=== PATIENT | female | born 1970 | race Caucasian/White ===

== ENCOUNTER 2020-12-15 10:00 | Outpatient (RCR) | payer OTHER, SELFPAY ==
--- NOTE | 2020-09-29 14:52 | HP.PTEVAL ---
Patient's Visit Information FARRUKH FARAH is a 50 year old F referred to Physical Therapy by LINDA SAUNDERS with a diagnosis of Complex Regional Pain Syndrome L LE. Date of Evaluation: 09/29/20 Physical Therapist: Julian Pham DPT - Visit Plan Frequency: 2x /Week Duration: 4 Weeks Plan: Plan for the pt. is to incorporate desensitization exercises to the left foot so the pt. can tolerate bearing weight through the foot. The pt. will start aquatic therapy and work on increasing her ROM and strength. HEP consisted of hip abduction exercises in sitting, ankle ABCs, and ankle pumps. If the pt. cannot tolerate foot strengthening or mobility exercises, start the patient with strengthening the proximal LE musculature in the pool. - Subjective The pt. is a 50 yo female who presents to the clinic with left ankle and foot pain. The pt. reports that she has been having this pain ever since her ankle surgery back in September 2019. She is dealing with CRPS and had a spinal stimulator in place in May and had multiple different complications with this, which resulted in getting it removed 6 days after it was placed. The spinal stimulator that was removed caused complications that the pt. is still dealing with, such as numbness and tingling into the left glute and groin area. The pt. is currently on pain medications such as Percocet for her pain, as well as Topamax. Pt. is scheduled to meet with her Dr., Dr. Saunders, on October 15 to discuss ketamine infusions in the ankle if the pain does not subside from PT. Pt. reports that participating in any sort of activity aggravates the pain in her ankle and she cannot sleep throughout the night. The pt. was an active individual prior to the ankle surgery and ran 3-4 miles 5 days a week and would like to get back to working and doing her ADL's without pain and discomfort. She is currently using a cane when she goes out into the community and at home, but did not bring it to therapy today. Her pain is ranked as an 8/10 today and reports numbness and tingling into the hip region and the medial aspect of the foot, as well as her foot feeling cold. - Pain L Ankle/Foot Pain Intensity (Out of 10): 8 Pain Intensity Range: 10 - Objective Posture: minimal rounded shoulders, forward head in both standing and sitting. Gait: decreased stance time on the L, decreased knee flexion during weight acceptance, decreased push off on L, decreased hip flexion throughout gait cycle on L, both lower extremities had decreased step length. Sensation: Intact on R, decreased sensation along L glute/groin region, decreased on L lateral aspect on foot, decreased on dorsal aspect of digits 1-5 of foot, increased sensation on the L medial aspect of foot, increased on L posterior rearfoot. ROM: L eversion 1 deg, R 12 deg, L inversion 5 deg, R 35 deg, L PF 2 deg, R 40 deg, L DF caused too much pain and was not tested, R 15 deg. MMT: hip extension R 4/5, L 3/5 with pain, hip abduction R 4/5, L 3/5 with pain, hip flexion R 5/5, L 3/5 with pain, Knee flexion R 5/5, L was not tested due to pain, Knee extension R 5/5, L was not tested due to pain, Dorsiflexion/inversion R 5/5, L was not tested due to pain, Eversion r 5/5, L was not tested due to pain. The pt. exhibits multiple limitations in gait, strength, sensation, and ROM, in which all need to be addressed by PT. The pt. is unable to tolerate weight in the left foot and shows an impaired gait pattern. The pt. needs PT to increase the patient's tolerance to movement, as well as strengthening the hip, knee, ankle, and foot musculature so she can return to her activities. - Goals Goal 1:: LTG: Pt. will be compliant and independent with her HEP. Goal Time Frame: 2-4 Weeks Goal 2:: LTG: Pt. will be able to score a 5/5 bilaterally in hip abduction strength, so she can ascend and descend the stairs in her home. Goal Time Frame: 4-6 Weeks Goal 3:: LTG: Pt. will be able to don and doff her shoes and socks on the L foot with pain less than a 3/10. Goal Time Frame: 4-6 Weeks Goal 4:: LTG: Pt. will be able to improve her DF ROM by 10 degrees so she can improve her gait. Goal Time Frame: 4-6 Weeks Goal 5:: LTG: Pt. to ambulate with improved normal gait pattern including normal rocker moment with 0-2/10 pain in LLE. Goal Time Frame: 4-6 Weeks - Rehabilitation Potential Physical Therapy Diagnosis: Pt. is a 50 yo pt. presenting to the clinic with signs and symptoms consistent to CRPS in the left lower extremity stemming from complications s/p ankle surgery in September 2019. The pt. shows decreased sensation, decreased ROM, and decreased strength within the left foot and ankle. The pt. is needing PT to address her impairments so she can resume working and living her life without pain. Rehabilitation Potential: Good - Anticipated Interventions Patient/Client Instruction: Educate patient on: Condition, Plan of Care, Risk Factors For the Purpose of:: To improve self management, To prevent re-injury, To improve ability to perform tasks related to life management, To improve tolerance to ADL's Therapeutic Exercise to Include: Strength training, Endurance training, Coordination, In an aquatic setting, Passive ROM, Active ROM For the Purpose of:: To decrease pain, To increase ROM, To improve muscle performance and motor function, To improve ability to perform ADL's, To increase flexibility/ROM Thank you for the opportunity to evaluate your patient. For Medicare and Medicare HMO plans, please review the plan of care and approve it. It will need to be FAXED BACK to us at [phone] for Medicare purposes. For Medicare only, by signing this I certify the plan of care. Please let me know if there are questions or concerns regarding this plan of care. Physician Signature: Date:
--- NOTE | 2020-10-27 15:41 | HP.PTREVAL_ITS ---
LINDA SAUNDERS, It has been my pleasure to treat FARRUKH FARAH over the last 9 visits for Complex Regional Pain Syndrome L LE. Please see the progress note below for an update on the physical therapy plan of care! Subjective: Today the pt. states that she is having pain in her left foot/ankle at about a 9/10. She states that she feels that she has not seen much change in her progress or her pain levels, but does want to continue seeing physical therapy and working in the pool. She has been having low back pain and left hip pain, which started last and has progressively gotten worse. Objective/Function: Today is the last scheduled visit for the pt. After having a conversation about physical therapy and the progress that the pt. has been making, the pt. would like to schedule more visits 2x a week and will speak to her doctor about getting a new C9. The pt. was able to stand for 30sec using her cane in her R hand with eyes open, as well as eyes closed. The pt. stated that she has been feeling off balance because of the numbness and loss of sensation she is having in her left foot. Her ankle plantarflexion and dorsiflexion ROM has progressed minimally, about 5deg each way, but has shown improvement from doing aquatic therapy and doing her exercises at home. Her gait pattern has also improved slightly since her first visit. She is putting more weight through her left foot while ambulating and has increased her jean paul slightly. The pts. low back and hip pain could be stemming from her abnormal gait pattern and can be addressed by PT in future visits. Plan Plan: The pt. will continue to see physical therapy 2x a week to increase her tolerance to weightbearing, mobility of the ankle joint, and increase her strength. The pt. has been having some low back pain and left hip pain, which should be addressed when performing exercises. She prefers aquatic therapy. As ubaldo for a new C9 x2 a week for 4 weeks to continue with progression for her pain and tolerance to functional mobility. Goals Goal 1:: LTG: Pt. will be compliant and independent with her HEP. Goal Time Frame: 2-4 Weeks Goal Progress: Progressing Goal 2:: LTG: Pt. will be able to score a 5/5 bilaterally in hip abduction strength, so she can ascend and descend the stairs in her home. Goal Time Frame: 4-6 Weeks Goal Progress: Progressing Goal 3:: LTG: Pt. will be able to don and doff her shoes and socks on the L foot with pain less than a 3/10. Goal Time Frame: 4-6 Weeks Goal Progress: Progressing Goal 4:: LTG: Pt. will be able to improve her DF ROM by 10 degrees so she can improve her gait. Goal Time Frame: 4-6 Weeks Goal Progress: Progressing Goal 5:: LTG: Pt. to ambulate with improved normal gait pattern including normal rocker moment with 0-2/10 pain in LLE. Goal Time Frame: 4-6 Weeks Goal Progress: Progressing Anticipated Interventions Patient/Client Instruction: Educate patient on: Condition, Plan of Care, Risk Factors For the Purpose of:: To improve self management, To prevent re-injury, To improve ability to perform tasks related to life management, To improve tolerance to ADL's Therapeutic Exercise to Include: Strength training, Endurance training, Coordination, In an aquatic setting, Passive ROM, Active ROM For the Purpose of:: To decrease pain, To increase ROM, To improve muscle performance and motor function, To improve ability to perform ADL's, To increase flexibility/ROM Please do not hesitate to contact me at [phone] by phone or if you have questions or concerns regarding this new plan of care! Sincerely, Julian Pham DPT
--- NOTE | 2020-12-15 13:01 | HP.PTDCSUM_ITS ---
It has been my pleasure to treat FARRUKH FARAH referred by LINDA SAUNDERS, with the diagnosis of Complex Regional Pain Syndrome L LE for a total of 16 visit(s). Discharge Date: 12/15/20 Please see the following information for a summary of their discharge status. Subjective: Pt. reports having increased symptoms. She arrives today using a cane. Pt. reports having pain that radiates up to mid calf and down to arch of foot. Pt. reports overall the symptoms are worsening. She reports possible ketamine in Dec and possible new trial of nitrous oxide treatments. She is walking in home, but has not be able to complete a more formal walking program. L Ankle/Foot Pain Intensity (Out of 10): 2 Lumbar Spine Pain Intensity (Out of 10): 5 L foot Pain Intensity (Out of 10): 9 % Improvement: 10 Objective/Function: Pt. reports now she is having increased pain from mid calf to arch or her L foot. She reports constant 8/10 pain that is stabbing in nature. She is walking in home, but is still in high levels of pain. She i nitially thought the pool with helping her pain, but now she is not convinced. I talked to her about looking at physically how she is doing rather than focusing on her pain. She is seeing a pain psychologist which she reports is helping. Pt. is limited with her ROM, L ankle: DF 7deg, PF 35deg, INV 6deg, EVR 6deg. (actively), She can tolerated slightly increased ROM passively, but not much. She has 4/5 strength throughout her L ankle and LE. Pt. ambulates with a single point cane properly, but appears to heavily using the AD. Pt. has decreased tempo and decreased step length, due to decreased L stance time. is able to don and doff footwear, but has difficulty secondary to pain. Pt. has difficult with stairs as well. I talked to her about graded exercise and walking program to keep mobility and functionality. Pt. consents. She is hopeful about completing this trial for her pain. Goal 1:: LTG: Pt. will be compliant and independent with her HEP. Goal Progress: Progressing Goal 2:: LTG: Pt. will be able to score a 5/5 bilaterally in hip abduction strength, so she can ascend and descend the stairs in her home. Goal Progress: Progressing Goal 3:: LTG: Pt. will be able to don and doff her shoes and socks on the L foot with pain less than a 3/10. Goal Progress: Not Progressing Goal 4:: LTG: Pt. will be able to improve her DF ROM by 10 degrees so she can improve her gait. Goal Progress: Progressing Goal 5:: LTG: Pt. to ambulate with improved normal gait pattern including normal rocker moment with 0-2/10 pain in LLE. Goal Progress: Progressing Plan: Pt. to be DC back to physician at this point in time. Discharge Comments: Pt. was seen for her CRPS in her L foot and ankle. pt. was t reated in aquatic setting for general mobility, ROM and strength. She reports no significant change in her pain. I talked to her about attempting to continue a walking program and general mobility. She consents. Pt. to follow up with physician at this point in time. She continues to be limited secondary to pain. I do not feel end feels with her ROM, but empty due to pain. She has had some strength changes. She has an HEP to focus on ROM and strengthening as well as to start a progressing walking program. Pt. consents. If there are questions or concerns regarding this patient's physical therapy, please feel free to call me at [phone]. Thank you for the referral of this patient. Sincerely, Julian Pham DPT
== END 2020-12-15 13:06 | disposition home or self-care (01) ==
LOC: PT 10:00
PROVIDERS: PCP Family Medicine
DX: G90.522 Complex regional pain syndrome I of left lower limb (principal)
CPT/HCPCS: 97113; 97161; 97164; 97530

== ENCOUNTER → 2021-01-26 09:51 | Outpatient (CLI) | payer OTHER, SELFPAY ==
[2021-01-26 12:26] LABS: Absolute Lymphocyte Count 2.99 X10^3/uL (0.83-4.51); Absolute Neutrophil Count 6.7 X10^3/uL (2.0-7.7); Basophil# 0.02 X10^3/uL; Basophil% 0.2 % (0-1); Hematocrit 44.2 % (37-47); Hemoglobin 15.2 g/dL (12.0-15.0); Lymphocyte # 2.99 X10^3/ul (0.83-4.51); Lymphocyte % 28.4 % (19-41); Mean Corp Hgb Conc 34.4 g/dL (32-36); Mean Corpuscular Hgb 36.2 pg (27.0-32.0); Mean Corpuscular Volume 105.2 fL (81-99); Mean Platelet Vol. 12.2 fl (6.2-12.0); Monocyte# 0.77 X10^3/uL; Monocyte% 7.3 % (0-10); NRBC Flagged by Analyzer 0 % (0-5); Neutrophil # 6.69 X10^3/uL (2.7-7.7); Neutrophil % 63.7 % (47-70); Platelet Count 277 K/mm3 (150-450); RBC Distribution Width CV 16.4 % (11.6-14.6); RBC Distribution Width SD 63.3 fl (35.1-43.9); White Blood Count 10.5 K/mm3 (4.4-11.0)
[2021-01-26 12:39] LABS: Vitamin B12 225 pg/mL (211-911); Vitamin D,25 Hydroxy 26.3 ng/mL
[2021-01-26 12:48] LABS: ALB/GLOB Ratio 0.9 RATIO (0.9-2.4); AST(SGOT) 17 U/L (15-37); Alanine Aminotransfer ALT/SGPT 22 U/L (13-56); Albumin, Serum 3.7 g/dL (3.2-5.0); Alkaline Phosphatase 34 U/L (45-117); Anion Gap 6 (5-15); BUN 15 mg/dL (7-18); BUN/Creat Ratio 15.5 RATIO (10-20); Calcium,Total 8.9 mg/dL (8.5-10.1); Chloride 110 mmol/L (98-107); Cholesterol 289 mg/dL (200); Creatinine, Serum 0.97 mg/dL (0.55-1.02); EST Glomerular Filtration Rate 65 mL/min (>60); Est Glom Filt Rate - Afr Amer 79 mL/min (>60); Globulin 3.9 g/dL (2.2-4.2); Glucose 82 mg/dL (74-106); High Density Lipoprotein 53 mg/dL; Potassium 4.3 mmol/L (3.5-5.1); Protein, Total 7.6 g/dL (6.4-8.2); Sodium Level 140 mmol/L (136-145); Thyroid Stim Hormone (TSH) 1.44 uIU/mL (0.358-3.74); Triglycerides 203 mg/dL; Very Low Density Lipoprotein 41 mg/dL (5-40)
== END ==
PROVIDERS: PCP Internal Medicine; Referring Provider Internal Medicine; Visit Provider Internal Medicine
DX: I10 Essential (primary) hypertension (principal); E53.8 Deficiency of other specified B group vitamins; E03.9 Hypothyroidism, unspecified; M81.0 Age-related osteoporosis without current pathological fracture
CPT/HCPCS: 36415; 80053; 80061; 82306; 82607; 84443; 85025

== ENCOUNTER → 2021-03-17 09:24 | Outpatient (CLI) | payer OTHER, SELFPAY ==
--- NOTE | 2021-03-17 09:30 | BD_ITS ---
STUDY: DUAL ENERGY X-RAY ABSORPTIOMETRY / DXA REASON FOR EXAM: Female, 50 years old. Osteoporosis TECHNIQUE: Bone Mineral Density (BMD) measurements of lumbar spine and bilateral hips were obtained. COMPARISON: None. FINDINGS: Lumbar Spine (L1-L4): g/cm2 (0.910) / T-score (-1.2) / Z-score (-0.6) Findings are suggestive of osteopenia with a low fracture risk. Left Femur Total: g/cm2 (0.638) / T-score (-2.5) / Z-score (-2.1) Left Femoral Neck: g/cm2 (0.599) / T-score (-2.3) / Z-score (-1.6) Right Femur Total: g/cm2 (0.704) / T-score (-2.0) / Z-score (-1.5) Right Femoral Neck: g/cm2 (0.713) / T-score (-1.2) / Z-score (-0.6) BD/Dexa Bone Density Study IMPRESSION: The patient is considered osteopenic as outlined below according to World [employer] Organization (WHO) criteria with a high fracture risk. Reference Information: The T-score is the number of standard deviations above or below the standard which is normal for young adults at their peak bone mineral density. The World Health Organization (WHO) interprets the T-scores as follows: Above -1 Normal bone density Between -1 and -2.5 Osteopenia Equal to / or below -2.5 Osteoporosis As a practical clinical guideline, osteopenia may be graded as follows: Mild -1 through -1.5 Moderate -1.6 through -2.0 Severe -2.1 through -2.4 The Z-score is the number of standard deviations above or below age-matched controls. A Z-score of less than -1.5 would be considered abnormal. References: 1. NIH Osteoporosis and Related Bone Diseases www osteo.org 2. International Society for Clinical Densitometry www iscd.org 3. National Osteoporosis Foundation www nof.org Electronically Signed: Bhaskar Cooper MD at 10:39 EDT , Service support ,
== END ==
PROVIDERS: PCP Internal Medicine; Referring Provider Internal Medicine; Visit Provider Internal Medicine
DX: M81.0 Age-related osteoporosis without current pathological fracture (principal)
CPT/HCPCS: 77080

== ENCOUNTER 2021-06-09 14:45 | Outpatient (CLI) | payer OTHER, SELFPAY ==
[2021-06-09 16:47] LABS: ALB/GLOB Ratio 0.9 RATIO (0.9-2.4); AST(SGOT) 13 U/L (15-37); Alanine Aminotransfer ALT/SGPT 23 U/L (13-56); Albumin, Serum 3.7 g/dL (3.2-5.0); Alkaline Phosphatase 31 U/L (45-117); Anion Gap 7 (5-15); BUN 18 mg/dL (7-18); BUN/Creat Ratio 17.1 RATIO (10-20); Calcium,Total 9.3 mg/dL (8.5-10.1); Chloride 109 mmol/L (98-107); Cholesterol 138 mg/dL (200); Creatinine, Serum 1.05 mg/dL (0.55-1.02); EST Glomerular Filtration Rate 59 mL/min (>60); Est Glom Filt Rate - Afr Amer 72 mL/min (>60); Globulin 4.1 g/dL (2.2-4.2); Glucose 82 mg/dL (74-106); High Density Lipoprotein 58 mg/dL; Protein, Total 7.8 g/dL (6.4-8.2); Sodium Level 142 mmol/L (136-145); Triglycerides 192 mg/dL; Very Low Density Lipoprotein 38 mg/dL (5-40)
== END 2021-06-09 23:59 | disposition short-term general hospital (02) ==
LOC: BIMLAB 14:46
PROVIDERS: PCP Internal Medicine; Referring Provider Internal Medicine; Visit Provider Internal Medicine
DX: E78.5 Hyperlipidemia, unspecified (principal)
CPT/HCPCS: 36415; 80053; 80061

== ENCOUNTER 2021-06-15 07:18 | Day surgery (SDC) | payer OTHER, SELFPAY ==
[2021-06-15] VITALS (7 sets, daily range): BP systolic 98–110; BP diastolic 55–74; PULSE 63–73; RESP 16; TEMP 36.2–36.8; O2SAT 98–99; BMI 24.2
[2021-06-15 08:05] LABS: Hematocrit 42.9 % (37-47); Hemoglobin 14.6 g/dL (12.0-15.0); Mean Corpuscular Volume 97.1 fL (81-99); Mean Platelet Vol. 10.8 fl (6.2-12.0); Platelet Count 276 K/mm3 (150-450); RBC Distribution Width CV 13.7 % (11.6-14.6); RBC Distribution Width SD 49.2 fl (35.1-43.9); Red Blood Count 4.42 M/mm3 (4.2-5.4)
[2021-06-15] MEDS: Vancomycin IV 1,000 MG/200 ML BAG 200 MG IV (08:08)
[2021-06-15] MEDS: Lactated Ringers 1,000 ML 15 ML IV (08:08)
--- NOTE | 2021-06-15 08:26 | PCM.OPRPT ---
Problems Associated Problem List Diagnoses (1) Neurogenic bladder: (2) Urge incontinence: Report of Operation Date of Procedure: 06/15/21 Pre-Operative Diagnosis: Neurogenic bladder, urge incontinence Post-Operative Diagnosis: Same Surgery/Procedure Performed:: InterStim stage I Surgeon: Glenna Trujillo Type of Anesthesia: MAC Description of Procedure: The patient is a 51-year-old female who began having issues with urinary incontinence following a spinal stimulator with damage to her sacral nerve root which was done as a treatment for complex regional pain syndrome that developed as a result of an injury to her ankle at work. She was evaluated with cystoscopy and urodynamics. Informed consent was obtained. The patient was taken to the operating room and placed in the prone position on the operating room table. She was appropriately padded and secured to the table. Anesthesia monitored the head, neck, airway, IV access and vital signs throughout the case. Once anesthesia was appropriate ministered the patient was prepped and draped in usual sterile fashion. The area over the S3 foramen was identified using fluoroscopy. The area of the skin was infiltrated with local anesthetic. The InterStim needle was then inserted through the S3 foramen on the left side and stimulation achieved no significant response. At this time the needle was inserted on the right through the S3 and a good blayne response was achieved. At this time the obturator of the needle was removed and the guidewire was placed. An incision was made around the guidewire. The dilator was then inserted into the S3 foramen followed by the lead. This was all done under fluoroscopic visualization. The lead was tested on all 4 sites and found to have the following responses: Good blayne on leads I and II with minimal response on lead III. At this time the pocket site was selected and anesthetized with local anesthetic on the patient's left side. An incision was made and cautery was used for hemostatic control. A small pocket was developed. The lead was tunneled into this pocket site where the lead extension was also tunneled and connected from the contralateral side. The lead extension was secured and the incision was closed using 3-0 Vicryl followed by 4-0 subcuticular Vicryl suturing and skin glue. The battery was then attached and secured to the patient's back using tape. The patient was awakened and taken to the recovery room in good condition. There were no complications during this procedure. Grafts/Implants Used: InterStim lead and lead extension Complications None Admit VTE Documentation VTE Present on Admission: No VTE Mechan Device Prophylaxis: None VTE Pharm Prophylaxis ordered?: No Reason prophylaxis not ordered:: Treatment Not Indicated
[2021-06-15 08:44] LABS: Anion Gap 10 (5-15); BUN 15 mg/dL (7-18); BUN/Creat Ratio 12.6 RATIO (10-20); Calcium,Total 8.3 mg/dL (8.5-10.1); Chloride 111 mmol/L (98-107); Creatinine, Serum 1.19 mg/dL (0.55-1.02); EST Glomerular Filtration Rate 51 mL/min (>60); Est Glom Filt Rate - Afr Amer 62 mL/min (>60); Estimated Creatinine Clearance 49.38 ml/min; Glucose 90 mg/dL (74-106); Potassium 3.4 mmol/L (3.5-5.1); Sodium Level 143 mmol/L (136-145)
--- NOTE | 2021-06-15 08:45 | RAD_ITS ---
STUDY: X-RAY - PELVIS REASON FOR EXAM: Female, 51 years old. INTERSTIM THERAPY 1 TECHNIQUE: One view of the pelvis was obtained. COMPARISON: None. FINDINGS: The tip of the InterStim electrode is in the superior left posterior aspect of the pelvis. RAD/Pelvis 1 or 2 Views IMPRESSION: Tip of the electrode is in the superior left posterior aspect of the pelvis. Electronically Signed: Bhaskar Cooper MD at 10:05 EST , Service support ,
[2021-06-15] MEDS: Lidocaine 1% /Epi 1:100 (50ml) 50 ML VIAL (09:46)
--- NOTE | 2021-06-15 10:09 | PCM.DC ---
Discharge Instructions Diet Discharge Diet: No restrictions Activity Discharge Activity: May Not Shower May resume sexual activity in: 3 weeks Dressing / Incision Call your doctor if your incision/area has: Continuous Slow Oozing, Sudden Increased Bleeding, Increased Pain/ Swelling, Increased Redness, Foul Smelling Discharge and Swelling at the incision site Call your doctor if you observe: Fever of 101 or Higher, Inability to urinate, Inability to have a bowel movement and Uncontrolled pain Cleanse incision/area with: Do not get Incision Wet and Keep Dressing Clean & Dry Follow Up Care Please Follow Up With: Glenna Trujillo MD When: In the office next week Test Results: Test results from this visit will be discussed in further detail at your follow-up appointment, if applicable. Discharge Plan Admission Attending Provider: Glenna Trujillo Primary Care Provider: Thuy Chan Instructions Additional Instructions / Restrictions: Patient may take 2 of her as needed oxycodone tablets 3 times daily as needed for the next 3 days for pain control. She may also take [id number] ibuprofen, naproxen, acetaminophen as needed. Discharge Orders/Prescriptions Prescriptions: New cephalexin [cephalexin] 500 MG capsule 500 mg PO Q12 3 Days Qty: 6 RF: 0 Continued escitalopram oxalate 10 mg tablet 30 mg PO DAILY RF: 0 oxycodone 5 mg tablet 5 mg PO TID PRN (Reason: Pain) RF: 0 topiramate 50 mg tablet 75 mg PO BID RF: 0 Prolia 60 mg/mL syringe 60 mg subcut [id number] Qty: 1 RF: 2 trazodone 50 mg Tablet 50 mg PO QHS RF: 0 mecobalamin (vitamin B12) 5,000 mcg tablet,disintegrating 5,000 mcg PO DAILY Qty: 90 RF: 2 cholecalciferol (vitamin D3) 125 mcg (5,000 unit) capsule 125 mcg PO DAILY Qty: 90 RF: 3 bisoprolol-hydrochlorothiazide 10-6.25 mg tablet 1 tab PO DAILY Qty: 90 RF: 1 levothyroxine 100 mcg tablet 100 mcg PO DAILY Qty: 90 RF: 1 rosuvastatin 20 mg tablet 20 mg PO DAILY Qty: 90 RF: 1 Referrals / Follow Up: Thuy Chan MD [Primary Care Provider] - Disposition Disposition (needs filled in before D/C Order can be placed): Home, Self Care
== END 2021-06-15 23:59 | disposition home or self-care (01) ==
LOC: SDC 07:31 → AC 07:32
PROVIDERS: PCP Internal Medicine; Referring Provider Urology; Visit Provider Urology
PROC: (CPT 64590; principal; 2021-06-15 08:40)
DX: Z45.49 Encounter for adjustment and management of other implanted nervous system device (principal); N31.9 Neuromuscular dysfunction of bladder, unspecified; N39.41 Urge incontinence; M81.0 Age-related osteoporosis without current pathological fracture; I10 Essential (primary) hypertension; Z79.899 Other long term (current) drug therapy; F32.A Depression, unspecified; G90.522 Complex regional pain syndrome I of left lower limb; Z87.19 Personal history of other diseases of the digestive system; Z90.49 Acquired absence of other specified parts of digestive tract; E03.9 Hypothyroidism, unspecified; E78.5 Hyperlipidemia, unspecified; E55.9 Vitamin D deficiency, unspecified; Z86.2 Personal history of diseases of the blood and blood-forming organs and certain disorders involving the immune mechanism; E78.00 Pure hypercholesterolemia, unspecified; M19.90 Unspecified osteoarthritis, unspecified site; G25.81 Restless legs syndrome
CPT/HCPCS: 64590; 64581; 00630; 72170; 76000; 80048; 85027; J7120; J2405

== ENCOUNTER 2021-06-22 18:04 | Outpatient (CLI) | payer OTHER, SELFPAY | END 2021-06-22 23:59 | disposition short-term general hospital (02) | LOC: LABSPEC 18:04 | PROVIDERS: PCP Internal Medicine; Visit Provider Internal Medicine | DX: U07.1 COVID-19 (principal) | CPT/HCPCS: 87635; U0003; U0005 ==

== ENCOUNTER 2021-06-29 07:59 | Day surgery (SDC) | payer OTHER, SELFPAY ==
[2021-06-29 08:26] VITALS: BP 114/77; PULSE 64; RESP 16; TEMP 36.2; O2SAT 99; BMI 23.8
[2021-06-29] MEDS: Lactated Ringers 1,000 ML 15 ML IV (08:30)
--- NOTE | 2021-06-29 10:17 | PCM.HP.STD ---
HPI - General HPI Narrative FARRUKH FARAH, is a 51 F who presents for [facility] Stage 2 for neurogenic bladder and incontinence. Informed consent has been obtained. [facility] Medical History Ambulates with cane Anemia Anxiety Anxiety and depression Arthritis B12 deficiency Back problem Bladder atony Bladder disease Blood disorder Breast lump Complex regional pain syndrome Complex regional pain syndrome i of left lower limb Depression Depression Flu vaccine need Gallstones Goiter Heartburn High cholesterol History of edema History of pain when walking Hives Hyperlipemia Hyperlipidemia Hypertension Hypertension Hypothyroidism Immune thrombocytopenia Insomnia Low iron Marijuana use Neurogenic bladder Osteoporosis Restless legs Shortness of breath on exertion Smoker Sudeck's syndrome Thyroid disease Urge incontinence Vitamin D insufficiency Wears dentures Wears glasses Home Medications escitalopram oxalate 10 mg tablet 30 mg PO DAILY tab 01/08/21 [History Last Taken Unknown] oxycodone 5 mg tablet 5 mg PO TID PRN tab 01/26/21 [History Last Taken Unknown] cholecalciferol (vitamin D3) 125 mcg (5,000 unit) capsule 125 mcg PO DAILY #90 cap 01/27/21 [Rx Last Taken Unknown] mecobalamin (vitamin B12) 5,000 mcg disintegrating tablet 5,000 mcg PO DAILY #90 tab 01/27/21 [Rx Last Taken Unknown] bisoprolol 10 mg-hydrochlorothiazide 6.25 mg tablet 1 tab PO DAILY #90 tab 03/16/21 [Rx Last Taken Unknown] levothyroxine 100 mcg tablet 100 mcg PO DAILY #90 tab 03/16/21 [Rx Last Taken 06/15/21] denosumab 60 mg/mL subcutaneous syringe 60 mg SUBCUT [id number] #1 ml 03/29/21 [Rx Last Taken Unknown] topiramate 50 mg tablet 75 mg PO BID tab 03/29/21 [History Last Taken Unknown] rosuvastatin 20 mg tablet 20 mg PO DAILY #90 tab 04/29/21 [Rx Last Taken Unknown] trazodone 50 mg PO QHS 06/08/21 [History Last Taken Unknown] cephalexin 500 mg PO Q12 3 Days #6 capsule 06/15/21 [Rx Last Taken Unknown] benzonatate 100 mg capsule 100 mg PO TID PRN #30 cap 06/23/21 [Rx Last Taken Unknown] fluticasone propionate 50 mcg/actuation nasal spray,suspension 1 - 2 spray INTRANASAL BID PRN #16 g 06/23/21 [Rx Last Taken Unknown] guaifenesin 400 mg tablet 400 mg PO TID PRN #30 tab 06/23/21 [Rx Last Taken Unknown] Allergy/AdvReac Type Severity Reaction Status Date / Time hydrocodone [From Vicodin] Allergy Severe Hives and Verified 06/29/21 08:25 nausea naproxen Allergy Severe Hives Verified 06/29/21 08:25 Sulfa (Sulfonamide Allergy Severe vomiting Verified 06/29/21 08:25 Antibiotics) and nausea tramadol Allergy Severe Hives Verified 06/29/21 08:25 aspirin Allergy Intermediate Hives Verified 06/29/21 08:25 Penicillins Allergy Intermediate Hives Verified 06/29/21 08:25 Family History Father Myocardial infarction, Onset Age: 53 Other Cancer Diabetes Hyperlipemia Hypertension Thyroid disorder Surgical History History of ankle surgery History of appendectomy History of cholecystectomy History of knee surgery History of partial hysterectomy History of splenectomy History of tonsillectomy Social History Smoking Status: Current every day smoker tobacco type: cigarettes alcohol intake: never substance use type: does not use what type of physical activity do you participate in: other details: sit ups frequency: 3-4 times per week ROS Constitutional Constitutional: Reports systems reviewed and no addt'l complaints, except as documented Eyes Eyes: Reports systems reviewed and no addt'l complaints, except as documented ENT HEENT: Reports systems reviewed and no addt'l complaints, except as documented Cardiovascular Cardiovascular: Reports systems reviewed and no addt'l complaints, except as documented Respiratory/Chest Respiratory/Chest: Reports systems reviewed and no addt'l complaints, except as documented Gastrointestinal Gastrointestinal: Reports fecal incontinence Genitourinary Genitourinary: Reports urinary incontinence Musculoskeletal Musculoskeletal: Reports numbness and radiating pain into limb Integumentary Integumentary: Reports systems reviewed and no addt'l complaints, except as documented Neurologic Neurologic: Reports systems reviewed and no addt'l complaints, except as documented Psychiatric Psychiatric: Reports systems reviewed and no addt'l complaints, except as documented Endocrine Endocrinology: Reports systems reviewed and no addt'l complaints, except as documented Hematologic/Lymphatic Hematologic/Lymphatic: Reports systems reviewed and no addt'l complaints, except as documented Allergic/Immunologic Allergic/Immunologic: Reports systems reviewed and no addt'l complaints, except as documented Vital Signs Vital Signs Vital Signs: 06/29/21 08:26 Temperature 97.1 F L Temperature Source Temporal Pulse Rate 64 Respiratory Rate 16 Respiratory Pattern Normal Blood Pressure 114/77 Blood Pressure Mean 89 Blood Pressure Source Monitor Blood Pressure Position Semi-Fowlers Blood Pressure Location Left Arm Pulse Ox 99 Oxygen Delivery Method Room Air Weight Weight: 63 kg Body Mass Index (BMI) 23.8 Physical Exam Const alert, oriented x3 and no apparent distress HEENT normocephalic, hearing grossly normal bilaterally and external nose normal Eyes conjunctivae normal, no scleral icterus and no papilledema Neck supple General: trachea midline Lymph Lymphatic: no lymphedema noted Chest inspection of chest normal Chest: symmetrical chest wall rise Resp normal respiratory effort, normal air movement, no retractions and no use of accessory muscles Effort and Inspection: able to speak in complete sentences and symmetric chest movement Cardio regular rate and regular rhythm GI soft to palpation, non-tender and non-distended no CVA tenderness and external exam normal Back/Spine no CVA tenderness Extremity normal to inspection Skin no rashes or lesions noted, no wounds, skin turgor normal, no jaundice, no petechiae and no mottling Neuro oriented x3, CN's II-XII intact bilaterally and moves all extremities Psych mental status grossly normal, thought process normal, cooperative, affect normal and speech normal Results Lab / Micro Data Micro: Microbiology 06/29/21 08:15 Interface Orders SARS-CoV-2 Antigen (Rapid) - Final Assessment & Plan Assessment/Plan (1) Neurogenic bladder: PLAN: proceed with Interstim stage 2. (2) Urge incontinence: Procedure Criteria Type of Procedure Procedure Type: Elective Elective Risks - COVID COVID Risk Discussion: The surgeon/proceduralist and patient have discussed in detail the risk of exposure to and/or potential harm posed by the COVID-19 virus with having a surgery/procedure at this time versus the risk of delaying the surgery/procedure. It is not possible to know either the risk of delaying the surgery or procedure or chance of getting an infection with perfect accuracy, but a joint decision was made between the patient and the surgeon/proceduralist to proceed at this time with the scheduled surgery/procedure as indicated on the consent form.
--- NOTE | 2021-06-29 10:21 | PCM.OPRPT ---
Problems Associated Problem List Diagnoses (1) Urge incontinence: (2) Neurogenic bladder: Report of Operation Date of Procedure: 06/29/21 Pre-Operative Diagnosis: urge incontinence, neurogenic bladder Post-Operative Diagnosis: same Surgery/Procedure Performed:: Interstim Stage 2 Surgeon: Glenna Trujillo Type of Anesthesia: MAC Description of Procedure: Is a 51-year-old female who had a successful stage I InterStim and now presents for implantation of her IPG. Informed consent was obtained. The patient was taken to the operating room and placed on the operating room table in the prone position. She was appropriately padded and secured to the table. Anesthesia monitored the head, neck, airway, IV access and vital signs throughout the case. Once anesthesia was appropriate ministered the patient was prepped and draped in usual sterile fashion. The incision overlying the boot was opened after infiltration carefully was done with lidocaine. The hemostats were used to identify the boot and bring this into the operative field. The torque wrench was used for removal of the lead from the lead extension. The lead extension was cut and removed from the operative field. The pocket site was enlarged using cautery and blunt dissection. The incision was irrigated with sterile water. Hemostasis was achieved. The lead was inserted into the IPG and secured using the torque wrench. The IPG was placed into the pocket site in an appropriate depth and impedances were tested. They were appropriate and the incision was closed using 3-0 interrupted Vicryl followed by 4-0 subcuticular suturing and skin glue. The patient was then awakened and taken this to the recovery room in good condition. There were no complications during this procedure. Grafts/Implants Used: IPG medtronics Complications none Admit VTE Documentation VTE Present on Admission: Yes VTE Mechan Device Prophylaxis: SCD's VTE Pharm Prophylaxis ordered?: No Reason prophylaxis not ordered:: Treatment Not Indicated
--- NOTE | 2021-06-29 10:22 | PCM.DC ---
Discharge Instructions Diet Discharge Diet: No restrictions Activity Discharge Activity: Return to Normal Activity and May Not Shower (tomorrow) Dressing / Incision Call your doctor if your incision/area has: Continuous Slow Oozing, Sudden Increased Bleeding, Increased Pain/ Swelling, Increased Redness, Foul Smelling Discharge and Swelling at the incision site Call your doctor if you observe: Fever of 101 or Higher, Inability to urinate, Inability to have a bowel movement and Uncontrolled pain Cleanse incision/area with: Keep Dressing Clean & Dry and - (do not remove the skin glue, it will fall off as the incision heals) Follow Up Care Please Follow Up With: Glenna Trujillo MD When: in the office in 3-4 weeks, call for appt Test Results: Test results from this visit will be discussed in further detail at your follow-up appointment, if applicable. Discharge Plan Admission Attending Provider: Glenna Trujillo Primary Care Provider: Thuy Chan Discharge Orders/Prescriptions Prescriptions: Continued escitalopram oxalate 10 mg tablet 30 mg PO DAILY RF: 0 oxycodone 5 mg tablet 5 mg PO TID PRN (Reason: Pain) RF: 0 topiramate 50 mg tablet 75 mg PO BID RF: 0 Prolia 60 mg/mL syringe 60 mg subcut [id number] Qty: 1 RF: 2 fluticasone propionate 50 mcg/actuation spray,suspension 1 - 2 spray intranasal BID PRN (Reason: allergies, congestion) Qty: 16 RF: 3 guaifenesin 400 mg tablet 400 mg PO TID PRN (Reason: congestion, cough) Qty: 30 RF: 0 benzonatate 100 mg capsule 100 mg PO TID PRN (Reason: cough) Qty: 30 RF: 1 trazodone 50 mg Tablet 50 mg PO QHS RF: 0 cephalexin 500 MG capsule 500 mg PO Q12 3 Days Qty: 6 RF: 0 mecobalamin (vitamin B12) 5,000 mcg tablet,disintegrating 5,000 mcg PO DAILY Qty: 90 RF: 2 cholecalciferol (vitamin D3) 125 mcg (5,000 unit) capsule 125 mcg PO DAILY Qty: 90 RF: 3 bisoprolol-hydrochlorothiazide 10-6.25 mg tablet 1 tab PO DAILY Qty: 90 RF: 1 levothyroxine 100 mcg tablet 100 mcg PO DAILY Qty: 90 RF: 1 rosuvastatin 20 mg tablet 20 mg PO DAILY Qty: 90 RF: 1 Referrals / Follow Up: Thuy Chan MD [Primary Care Provider] - Disposition Disposition (needs filled in before D/C Order can be placed): Home, Self Care
[2021-06-29] MEDS: Vancomycin IV 1,000 MG/200 ML BAG 200 MG IV (10:50)
[2021-06-29] MEDS: Lidocaine 1%/Epi 1:200 (30ml) 30 ML AMPUL (11:01)
[2021-06-29 11:25] VITALS: BP 114/77; BP 121/77; PULSE 60; RESP 16; TEMP 36.9; O2SAT 100
[2021-06-29 11:30] VITALS: BP 114/77; BP 118/76; PULSE 60; RESP 16; O2SAT 100
[2021-06-29 11:35] VITALS: BP 114/77; BP 123/76; PULSE 66; RESP 16; O2SAT 100
[2021-06-29 11:40] VITALS: BP 112/71; BP 114/77; PULSE 61; RESP 16; TEMP 36.9; O2SAT 100
[2021-06-29 12:10] VITALS: BP 114/77
== END 2021-06-29 23:59 | disposition home or self-care (01) ==
LOC: SDC 08:02 → AC 08:05
PROVIDERS: PCP Internal Medicine; Visit Provider Urology
PROC: (CPT 64590; principal; 2021-06-29 09:25)
DX: N31.9 Neuromuscular dysfunction of bladder, unspecified (principal); N39.41 Urge incontinence; I10 Essential (primary) hypertension; E78.00 Pure hypercholesterolemia, unspecified; E03.9 Hypothyroidism, unspecified; G90.522 Complex regional pain syndrome I of left lower limb; G25.81 Restless legs syndrome; M81.0 Age-related osteoporosis without current pathological fracture; M19.90 Unspecified osteoarthritis, unspecified site; E55.9 Vitamin D deficiency, unspecified; F32.A Depression, unspecified; F41.9 Anxiety disorder, unspecified; F17.210 Nicotine dependence, cigarettes, uncomplicated; Z79.899 Other long term (current) drug therapy; Z20.822 Contact with and (suspected) exposure to COVID-19
CPT/HCPCS: 64590; 00400; 87426; J7120; C1767; J2405

== ENCOUNTER → 2021-10-18 | Outpatient (CLI) | payer OTHER, SELFPAY ==
[2021-10-18 12:42] LABS: Absolute Lymphocyte Count 2.64 X10^3/uL (0.83-4.51); Absolute Neutrophil Count 7.3 X10^3/uL (2.0-7.7); Basophil# 0.06 X10^3/uL; Basophil% 0.5 % (0-1); Eosinophil# 0.09 X10^3/uL; Eosinophils% 0.8 % (0-5); Hematocrit 42.3 % (37-47); Hemoglobin 14.9 g/dL (12.0-15.0); Lymphocyte # 2.64 X10^3/ul (0.83-4.51); Mean Corp Hgb Conc 35.2 g/dL (32-36); Mean Corpuscular Hgb 33.6 pg (27.0-32.0); Mean Corpuscular Volume 95.3 fL (81-99); Mean Platelet Vol. 10.4 fl (6.2-12.0); Monocyte# 0.84 X10^3/uL; Monocyte% 7.6 % (0-10); NRBC Flagged by Analyzer 0 % (0-5); Neutrophil # 7.32 X10^3/uL (2.7-7.7); Neutrophil % 66.6 % (47-70); Platelet Count 322 K/mm3 (150-450); RBC Distribution Width CV 12.6 % (11.6-14.6); RBC Distribution Width SD 44.6 fl (35.1-43.9); Red Blood Count 4.44 M/mm3 (4.2-5.4)
[2021-10-18 13:15] LABS: Anion Gap 8 (5-15); BUN 11 mg/dL (7-18); BUN/Creat Ratio 13.6 RATIO (10-20); Calcium,Total 9.4 mg/dL (8.5-10.1); Chloride 94 mmol/L (98-107); Creatinine, Serum 0.81 mg/dL (0.55-1.02); EST Glomerular Filtration Rate 80 mL/min (>60); Est Glom Filt Rate - Afr Amer 97 mL/min (>60); Glucose 81 mg/dL (74-106); Potassium 4.8 mmol/L (3.5-5.1); Sodium Level 128 mmol/L (136-145)
== END | disposition home or self-care (01) ==
LOC: BIMLAB 10:46
PROVIDERS: PCP Internal Medicine; Referring Provider Internal Medicine; Visit Provider Internal Medicine
DX: M81.8 Other osteoporosis without current pathological fracture (principal); E03.9 Hypothyroidism, unspecified
CPT/HCPCS: 36415; 80048; 85025

== ENCOUNTER → 2021-10-27 | Outpatient (CLI) | payer OTHER, SELFPAY ==
--- NOTE | 2021-10-27 07:29 | BI_ITS ---
MAMMOGRAPHY - BILATERAL SCREENING REASON FOR EXAM: Female, 51 years old. Routine annual screening examination. PERTINENT HISTORY: Grandmother with breast cancer. Remote left needle biopsy. TECHNIQUE: Digital bilateral breast jonel (3D mammographic acquisition) in the CC and MLO projections. 2-D mediolateral oblique (MLO) and craniocaudad (CC) views of both breasts were obtained. CAD: Full Field Digital Mammography with Computer Added Detection was performed. COMPARISON: Comparison is made with prior examination dated 11/24/2020. FINDINGS: Breast Composition: There are scattered areas of fibroglandular density. There are no dominant masses or suspicious calcifications. Stable asymmetry of breast tissue in the upper outer quadrant of the left breast. A tissue clip marker is seen within the asymmetry. Small bilateral axillary lymph nodes. No other significant abnormalities are identified. There has been no significant change since the prior study. BI/SCRN MAMM (CAD)W/JONEL BILAT IMPRESSION: Stable bilateral screening mammogram. Yearly follow-up mammogram recommended. (A) ASSESSMENT CATEGORY: BIRADS Category 2: Benign. A letter regarding these results will be sent to the patient by the facility within 30 days. Approximately 10% of breast cancers are not detected by mammography. A normal mammogram should not delay biopsy of a clinically suspicious abnormality. [id number] Electronically Signed: Bhaskar Cooper MD at 9:33 EDT ,
== END | disposition home or self-care (01) ==
LOC: OPBI 07:28
PROVIDERS: PCP Internal Medicine; Visit Provider Internal Medicine
DX: Z12.31 Encounter for screening mammogram for malignant neoplasm of breast (principal); Z80.3 Family history of malignant neoplasm of breast
CPT/HCPCS: 77063; 77067

== ENCOUNTER → 2021-11-16 | Outpatient (CLI) | payer OTHER, SELFPAY ==
[2021-11-16 15:59] LABS: Anion Gap 5 (5-15); BUN 10 mg/dL (7-18); BUN/Creat Ratio 11.2 RATIO (10-20); Calcium,Total 9.6 mg/dL (8.5-10.1); Chloride 106 mmol/L (98-107); EST Glomerular Filtration Rate 71 mL/min (>60); Est Glom Filt Rate - Afr Amer 86 mL/min (>60); Glucose 79 mg/dL (74-106); Potassium 4.5 mmol/L (3.5-5.1); Sodium Level 139 mmol/L (136-145); Thyroid Stim Hormone (TSH) 0.82 uIU/mL (0.358-3.74)
== END | disposition home or self-care (01) ==
LOC: BIMLAB 13:24
PROVIDERS: PCP Internal Medicine; Visit Provider Internal Medicine
DX: E87.1 Hypo-osmolality and hyponatremia (principal); E03.9 Hypothyroidism, unspecified
CPT/HCPCS: 36415; 80048; 84443

== ENCOUNTER → 2021-11-17 | Outpatient (CLI) | payer OTHER, SELFPAY ==
[2021-11-17 15:59] LABS: Absolute Lymphocyte Count 4.69 X10^3/uL (0.83-4.51); Absolute Neutrophil Count 5.8 X10^3/uL (2.0-7.7); Basophil# 0.08 X10^3/uL; Basophil% 0.7 % (0-1); Eosinophil# 0.09 X10^3/uL; Eosinophils% 0.8 % (0-5); Hematocrit 44.3 % (37-47); Hemoglobin 15.1 g/dL (12.0-15.0); Lymphocyte # 4.69 X10^3/ul (0.83-4.51); Lymphocyte % 40.3 % (19-41); Mean Corp Hgb Conc 34.1 g/dL (32-36); Mean Corpuscular Hgb 33.5 pg (27.0-32.0); Mean Corpuscular Volume 98.2 fL (81-99); Mean Platelet Vol. 11.3 fl (6.2-12.0); Monocyte# 0.94 X10^3/uL; Monocyte% 8.1 % (0-10); NRBC Flagged by Analyzer 0 % (0-5); Neutrophil # 5.82 X10^3/uL (2.7-7.7); Neutrophil % 49.8 % (47-70); POSITIVE MORPHOLOGY YES; Platelet Count 297 K/mm3 (150-450); RBC Distribution Width CV 14.2 % (11.6-14.6); RBC Distribution Width SD 51.6 fl (35.1-43.9); Red Blood Count 4.51 M/mm3 (4.2-5.4); White Blood Count 11.7 K/mm3 (4.4-11.0)
[2021-11-17 16:13] LABS: Differential Indicated SCAN CRITERIA MET
[2021-11-17 16:36] LABS: Differential Comment SCANNED
[2021-11-17 18:57] LABS: AST(SGOT) 19 U/L (15-37); Alanine Aminotransfer ALT/SGPT 24 U/L (13-56); Albumin, Serum 3.9 g/dL (3.2-5.0); Alkaline Phosphatase 35 U/L (45-117); Bilirubin, Direct 0.16 mg/dL (0.00-0.30); Globulin 3.9 g/dL (2.2-4.2); Protein, Total 7.8 g/dL (6.4-8.2)
== END | disposition home or self-care (01) ==
LOC: LAB 15:01
PROVIDERS: PCP Internal Medicine
DX: Z03.89 Encounter for observation for other suspected diseases and conditions ruled out (principal)
CPT/HCPCS: 36415; 80076; 85025

== ENCOUNTER → 2022-01-17 | Outpatient (CLI) | payer MEDICAID, SELFPAY ==
[2022-01-17 12:32] LABS: Absolute Lymphocyte Count 4.29 X10^3/uL (0.83-4.51); Absolute Neutrophil Count 9.3 X10^3/uL (2.0-7.7); Basophil# 0.12 X10^3/uL; Basophil% 0.8 % (0-1); Eosinophil# 0.14 X10^3/uL; Eosinophils% 0.9 % (0-5); Hemoglobin 15.1 g/dL (12.0-15.0); Lymphocyte # 4.29 X10^3/ul (0.83-4.51); Lymphocyte % 28.6 % (19-41); Mean Corp Hgb Conc 34.3 g/dL (32-36); Mean Corpuscular Hgb 34.4 pg (27.0-32.0); Mean Corpuscular Volume 100.2 fL (81-99); Mean Platelet Vol. 10.9 fl (6.2-12.0); Monocyte# 1.12 X10^3/uL; Monocyte% 7.5 % (0-10); NRBC Flagged by Analyzer 0 % (0-5); Neutrophil # 9.28 X10^3/uL (2.7-7.7); Neutrophil % 61.7 % (47-70); Platelet Count 282 K/mm3 (150-450); RBC Distribution Width CV 14.6 % (11.6-14.6); RBC Distribution Width SD 54.3 fl (35.1-43.9); Red Blood Count 4.39 M/mm3 (4.2-5.4)
[2022-01-17 13:11] LABS: ALB/GLOB Ratio 0.9 RATIO (0.9-2.4); AST(SGOT) 19 U/L (15-37); Alanine Aminotransfer ALT/SGPT 25 U/L (13-56); Albumin, Serum 3.4 g/dL (3.2-5.0); Alkaline Phosphatase 33 U/L (45-117); Anion Gap 3 (5-15); BUN 7 mg/dL (7-18); Calcium,Total 8.8 mg/dL (8.5-10.1); Chloride 110 mmol/L (98-107); Creatinine, Serum 0.87 mg/dL (0.55-1.02); EST Glomerular Filtration Rate 73 mL/min (>60); Est Glom Filt Rate - Afr Amer 89 mL/min (>60); Globulin 3.9 g/dL (2.2-4.2); Glucose 97 mg/dL (74-106); Potassium 4.3 mmol/L (3.5-5.1); Protein, Total 7.3 g/dL (6.4-8.2); Sodium Level 138 mmol/L (136-145)
== END | disposition home or self-care (01) ==
LOC: BIMLAB 11:32
PROVIDERS: PCP Internal Medicine; Referring Provider Internal Medicine; Visit Provider Internal Medicine
DX: E03.9 Hypothyroidism, unspecified (principal)
CPT/HCPCS: 36415; 80053; 84443; 85025

== ENCOUNTER → 2022-02-08 | Outpatient (CLI) | payer MEDICAID, SELFPAY ==
[2022-02-08 16:42] LABS: Absolute Lymphocyte Count 3.93 X10^3/uL (0.83-4.51); Absolute Neutrophil Count 6.2 X10^3/uL (2.0-7.7); Basophil# 0.11 X10^3/uL; Basophil% 0.9 % (0-1); Eosinophil# 0.14 X10^3/uL; Eosinophils% 1.2 % (0-5); Hematocrit 46.1 % (37-47); Hemoglobin 15.5 g/dL (12.0-15.0); Lymphocyte # 3.93 X10^3/ul (0.83-4.51); Lymphocyte % 33.8 % (19-41); Mean Corp Hgb Conc 33.6 g/dL (32-36); Mean Corpuscular Hgb 33.8 pg (27.0-32.0); Mean Corpuscular Volume 100.4 fL (81-99); Mean Platelet Vol. 10.6 fl (6.2-12.0); Monocyte# 1.19 X10^3/uL; Monocyte% 10.2 % (0-10); NRBC Flagged by Analyzer 0 % (0-5); Neutrophil # 6.22 X10^3/uL (2.7-7.7); Neutrophil % 53.6 % (47-70); Platelet Count 287 K/mm3 (150-450); RBC Distribution Width SD 51.5 fl (35.1-43.9); Red Blood Count 4.59 M/mm3 (4.2-5.4); White Blood Count 11.6 K/mm3 (4.4-11.0)
[2022-02-08 17:25] LABS: Thyroid Stim Hormone (TSH) 0.42 uIU/mL (0.358-3.74)
== END | disposition home or self-care (01) ==
LOC: BIMLAB 16:08
PROVIDERS: PCP Internal Medicine; Referring Provider Internal Medicine; Visit Provider Internal Medicine
DX: E03.9 Hypothyroidism, unspecified (principal); D72.829 Elevated white blood cell count, unspecified
CPT/HCPCS: 36415; 84443; 85025

== ENCOUNTER → 2022-03-09 | Outpatient (CLI) | payer MEDICAID, SELFPAY ==
[2022-03-09 17:25] LABS: CRP 5.33 mg/L (0.0-3.0); Rheumatoid Factor < 10.0 IU/mL (<15)
[2022-03-12 12:17] LABS: CCP IgG Antibodies 5 units (0-19)
== END | disposition home or self-care (01) ==
LOC: BIMLAB 15:10
PROVIDERS: PCP Internal Medicine; Referring Provider Internal Medicine; Visit Provider Internal Medicine
DX: M19.90 Unspecified osteoarthritis, unspecified site (principal)
CPT/HCPCS: 36415; 86140; 86200; 86431

== ENCOUNTER → 2022-07-19 | Outpatient (CLI) | payer MEDICAID, SELFPAY ==
--- NOTE | 2022-07-19 09:03 | RAD_ITS ---
STUDY: X-RAY - ABDOMEN/PELVIS REASON FOR EXAM: Female, 52 years old. Urinary retention. Checking stimulator leads. TECHNIQUE: Single AP view of the abdomen / pelvis. COMPARISON: None. FINDINGS: Normal visualized lung bases. There is an unremarkable bowel gas pattern. There is no demonstrated free abdominal air. The visualized liver, spleen and kidneys are grossly normal in size and morphology. There is a generator in the soft tissues of the left buttock with its electrode tip on the right just below the pelvic brim. Normal visualized osseous structures. RAD/Abdomen Single View IMPRESSION: Pelvic stimulator, as above. Electronically Signed: Quan Issa DO at 17:40 EST ,
== END | disposition home or self-care (01) ==
LOC: MTRAD 09:01
PROVIDERS: PCP Nurse Practitioner Primary Care; Referring Provider Urology; Visit Provider Urology
DX: R33.9 Retention of urine, unspecified (principal)
CPT/HCPCS: 74018

== ENCOUNTER 2023-09-02 22:52 | Emergency (ER) | payer MEDICAID, SELFPAY ==
[2023-09-02 22:54] VITALS: BP 153/90; PULSE 95; RESP 18; TEMP 36.6; O2SAT 100; BMI 26.2
--- NOTE | 2023-09-02 23:21 | RAD_ITS ---
INDICATION: pain EXAMINATION/TECHNIQUE: X-RAY - XR Spine Lumbar 2 or 3 Views COMPARISON: No relevant prior comparison study available FINDINGS: VERTEBRAE: Preserved vertebral body height. No fracture. No spondylolisthesis. Preservation of the normal lumbar lordosis. No significant facet arthropathy. DISCS: Small endplate osteophytes throughout the thoracic and lumbar spine. INCLUDED ABDOMEN: Included bowel gas pattern is non-obstructive. RAD/Lumbar Spine 2 or 3 Views IMPRESSION: No evidence of lumbar spinal fracture or spondylolisthesis. Electronically Signed: Jamie Frank MD at 0:06 EDT ,
--- NOTE | 2023-09-02 23:22 | EDS_ITS ---
HPI History of Present Illness Chief Complaint: Back Informant: patient Narrative Narrative: Patient started having acute back pain yesterday starting when she bent over to sampler pickup her scooter. Right low back, she states she felt something pop and then pain that radiated a little bit further down into the buttock but not into the leg, indicating that she assumes that it was her sciatic nerve that it is bothering. She states it may have been a lead that was pulled out from her bladder stimulator which is on the left side, although she denies having any new bladder problems since this occurred. She denies any saddle anesthesia, bowel or bladder dysfunction, or weakness or numbness in the legs. [facility] Medical History Ambulates with cane Anemia Anxiety Anxiety and depression Arthritis B12 deficiency Back problem Bladder atony Bladder disease Blood disorder Breast lump Cervical radiculopathy Colon cancer screening Complex regional pain syndrome Complex regional pain syndrome i of left lower limb Depression Depression Fatigue Flu vaccine need Gallstones Goiter Health care maintenance Heartburn High cholesterol History of edema History of pain when walking Hives Hyperlipemia Hyperlipidemia Hypertension Hypertension Hyponatremia Hypothyroidism Immune thrombocytopenia Insomnia Leukocytosis Low iron Marijuana use Neurogenic bladder Osteoporosis Rash Restless legs Shortness of breath on exertion Sleep disorder Smoker Sudeck's syndrome Thyroid disease Urge incontinence Urticaria Vitamin D insufficiency Wears dentures Wears glasses Home Medications cholecalciferol (vitamin D3) 125 mcg (5,000 unit) capsule 125 mcg PO DAILY #90 caps 01/27/21 [Rx Last Taken Unknown] fluticasone propionate 50 mcg/actuation nasal spray,suspension 1 - 2 spray intranasal BID PRN allergies, congestion #16 grams 06/23/21 [Rx Last Taken Unknown] medical marijuana OTHER 10/18/21 [History Last Taken Unknown] mecobalamin (vitamin B12) 5,000 mcg disintegrating tablet 5,000 mcg PO DAILY #90 tabs 11/04/21 [Rx Last Taken Unknown] bisoprolol fumarate 10 mg tablet 10 mg PO BID 3 months #180 tabs 12/06/21 [Rx Last Taken Unknown] baclofen 10 mg tablet 10 mg PO BID #60 tabs 01/17/22 [Rx Last Taken Unknown] rosuvastatin 20 mg tablet 20 mg PO DAILY #90 tabs 02/01/22 [Rx Last Taken Unkno wn] escitalopram oxalate 20 mg tablet 40 mg PO DAILY 02/08/22 [History Last Taken Unknown] gabapentin 100 mg capsule 100 mg PO Q6H PRN 02/08/22 [History Last Taken Unknown] gabapentin 300 mg capsule 300 mg PO TID 02/08/22 [History Last Taken Unknown] levothyroxine 88 mcg tablet 88 mcg PO DAILY #90 tabs 03/07/22 [Rx Last Taken Unknown] ferrous sulfate 325 mg (65 mg iron) tablet (Feosol) 325 mg PO DAILY 03/09/22 [History Last Taken Unknown] multivitamin 1 tab PO DAILY 03/09/22 [History Last Taken Unknown] famotidine 20 mg tablet 20 mg PO BID #30 tabs 03/15/22 [Rx Last Taken Unknown] fexofenadine 60 mg tablet (Gaby Allergy) 60 mg PO BID #60 tabs 03/15/22 [Rx Last Taken Unknown] losartan 50 mg tablet 50 mg PO DAILY #30 tabs 03/15/22 [Rx Last Taken Unknown] denosumab 60 mg/mL subcutaneous syringe (Prolia) 60 mg subcut [id number] #1 mL 07/05/22 [Rx Last Taken Unknown] Allergy/AdvReac Type Severity Reaction Status Date / Time hydrocodone [From Vicodin] Allergy Severe Hives and Verified 09/02/23 22:57 nausea naproxen Allergy Severe Hives Verified 09/02/23 22:57 Sulfa (Sulfonamide Allergy Severe vomiting Verified 09/02/23 22:57 Antibiotics) and nausea tramadol Allergy Severe Hives Verified 09/02/23 22:57 aspirin Allergy Intermediate Hives Verified 09/02/23 22:57 Penicillins Allergy Intermediate Hives Verified 09/02/23 22:57 triamterene Allergy Hives,tachy Verified 09/02/23 22:57 cardia Family History Father Myocardial infarction, Onset Age: 53 Other Cancer Diabetes Hyperlipemia Hypertension Thyroid disorder Surgical History History of ankle surgery History of appendectomy History of cholecystectomy History of knee surgery History of partial hysterectomy History of splenectomy History of tonsillectomy Social History Smoking Status: Current every day smoker tobacco type: cigarettes alcohol intake: never substance use type: does not use what type of physical activity do you participate in: other details: sit ups frequency: 3-4 times per week ROS ROS ED Constitutional Constitutional ED: Denies chills or fever(s) Gastrointestinal Gastrointestinal: Denies abdominal pain, constipation, fecal incontinence, nausea or vomiting Genitourinary Genitourinary ED: Reports other Details: no urinary retention ; Denies abdominal discomfort or urinary incontinence Musculoskeletal Musculoskeletal: Reports as per HPI and back pain; Denies neck pain Integumentary Denies rash or wounds Neurologic Neurologic: Reports paresthesias LLE (With pain chronic due to RSD); Denies headache(s) or weakness EXAM Physical Exam Const Vital Signs: 09/02/23 22:54 Temperature 97.9 F Temperature Source Temporal Pulse Rate 95 Respiratory Rate 18 Blood Pressure 153/90 H Blood Pressure Mean 111 Pulse Ox 100 Oxygen Delivery Method Room Air Positive well nourished and well developed General Appearance ED: well developed and NAD HEENT Negative for trauma or tenderness Eyes PERRL and EOMs intact bilaterally Neck full ROM and supple GI normal to inspection, nondistended, normoactive bowel sounds, soft to palpation and non-tender Back/Spine normal to inspection Back/Spine Narrative: With attending to examine the patient I barely touched the normal-appearing skin at her mid sacral area, patient grabs my hand with both hands and not allowing any further examination of the area. Therefore examination is very limited but it is normal-appearing. Negative straight leg raises without causing any back pain or radicular symptoms. Lumbar Spine / Lower Back: ROM limited and straight leg raise negative bilaterally Extremity normal to inspection, full ROM and no pedal edema Neuro oriented x3 and no sensory deficits noted Sensorium / Orientation: alert Motor Exam: strength 5/5 throughout and clonus absent Deep Tendon Reflexes: Rt Patellar (L4): 1+, Lt Patellar (L4): 1+, Rt Ankle (S1): 1+ and Lt Ankle (S1): 1+ Deep Tendon Reflexes Back: Rt Patellar (L4): 1+, Lt Patellar (L4): 1+, Rt Ankle (S1): 1+ and Lt Ankle (S1): 1+ Plantar Reflex: Downgoing: bilateral Psych mental status grossly normal and thought process normal Skin no rashes or lesions noted and no wounds MDM MDM MDM Narrative Medical decision making narrative: Really not able to clinically evaluate the patient with my hands, although inspection is normal and she did allow straight leg raises which are negative. She wants x-ray to look at the wires, I told her that looking at the placement of the wires is really not can offer much insight, but since she usually does not have pain and the area I was trying to examine was in the midline, suggesting she has midline tenderness, I did not think it was unreasonable to obtain some LS spine films. 3 views of my interpretation negative for thing acute. I showed the patient the films and the placement of the wire/stimulator, and at that point she understood what I was talking about, that it would be impossible to know if it moved half a centimeter or not. She states prior to coming here, she used her home device and turned the stimulator off. Advised to use it like she usually does, and if she has any major clinical changes that are unexpected or does not seem like it is working properly to follow-up with the surgeon to put it in but I suspect she had a myofascial strain and that her back pain etiology is musculoskeletal. She was given a Percocet here which helped. Supportive care advised. Radiography Diagnostic Testing: Clinical Impression(s) from Imaging Studies Lumbar Spine X-Ray 09/02/23 23:21 IMPRESSION: No evidence of lumbar spinal fracture or spondylolisthesis. Electronically Signed: Jamie Frank MD at 0:06 EDT Reading Location ID and State: [address] [place] [address] Tel , Service support , Discharge Plan Triage Chief Complaint: Back ED Provider: Carlito Chaney Dx/Rx/DC Orders Clinical Impression: Acute myofascial strain of lumbosacral region Instructions: ED Back Sprain/Strain Prescriptions: No Action medical marijuana OTHER fluticasone propionate 50 mcg/actuation spray,suspension 1 - 2 spray intranasal BID PRN (Reason: allergies, congestion) Qty: 16 3RF Rx Instructions: administer into each nostril; 2 sprays in each nostril for the first week baclofen 10 mg tablet 10 mg PO BID Qty: 60 1RF escitalopram oxalate 20 mg tablet 40 mg PO DAILY gabapentin 300 mg capsule 300 mg PO TID gabapentin 100 mg capsule 100 mg PO Q6H PRN multivitamin Tablet 1 tab PO DAILY ferrous sulfate [Feosol] 325 mg (65 mg iron) tablet 325 mg PO DAILY fexofenadine [Gaby Allergy] 60 mg tablet 60 mg PO BID Qty: 60 0RF famotidine 20 mg tablet 20 mg PO BID Qty: 30 0RF losartan 50 mg tablet 50 mg PO DAILY Qty: 30 1RF cholecalciferol (vitamin D3) 125 mcg (5,000 unit) capsule 125 mcg PO DAILY Qty: 90 3RF mecobalamin (vitamin B12) 5,000 mcg tablet,disintegrating 5,000 mcg PO DAILY Qty: 90 3RF bisoprolol fumarate 10 mg tablet 10 mg PO BID 90 Days Qty: 180 2RF rosuvastatin 20 mg tablet 20 mg PO DAILY Qty: 90 3RF levothyroxine 88 mcg tablet 88 mcg PO DAILY Qty: 90 1RF Prolia 60 mg/mL syringe 60 mg subcut [id number] Qty: 1 2RF Primary Care Provider: Belinda Mcintosh NP Referrals: Belinda Mcintosh NP, [employer] [Primary Care Provider] - 1 Week if not improving Disposition Disposition: Home, Self Care
[2023-09-02] MEDS: Oxycodone/Apap 5/325 Tablet PO (23:50)
[2023-09-03 00:44] VITALS: BP 141/65; PULSE 78; RESP 18; TEMP 36.3; O2SAT 98
== END 2023-09-03 00:46 | disposition home or self-care (01) ==
PROVIDERS: Emergency Provider Emergency Medicine; PCP Registered Nurse; Visit Provider Emergency Medicine
DX: S39.012A Strain of muscle, fascia and tendon of lower back, initial encounter (principal); F17.210 Nicotine dependence, cigarettes, uncomplicated; X58.XXXA Exposure to other specified factors, initial encounter
CPT/HCPCS: 72100; 99282